=== PATIENT | female | born 1960 | race Caucasian/White ===

== ENCOUNTER 2020-05-11 12:45 | Outpatient (RCR) | payer OTHER, SELFPAY | END 2020-05-11 23:59 | LOC: IMMUN 12:45 | PROVIDERS: PCP Family Medicine; Visit Provider Family Medicine | DX: Z23 Encounter for immunization (principal) | CPT/HCPCS: 0011A; 0012A; 91301 ==

== ENCOUNTER → 2021-08-13 | Outpatient (CLI) | payer OTHER, SELFPAY ==
--- NOTE | 2021-08-13 14:58 | VDLE_ITS ---
Reason For Study: Pain RIGHT GSV is normal. CFV is compressible, spontaneous, phasic, competent and demonstrates normal augmentation. FV is compressible, spontaneous, phasic, competent and demonstrates normal augmentation. POP V is compressible, spontaneous, phasic, competent and demonstrates normal augmentation. T/P Trunk is compressible. PTV is compressible. RT PerV is compressible. Procedure This is a venous duplex using B-mode, color flow and spectral Doppler. Exam performed in department. A preliminary report was called and/or faxed to Fabián HAZEL. VL/Venous Duplex US, Unilateral Interpretation Summary Deep veins of the right lower extremity are patent and compressible segmentally . There is no evidence of right lower extremity deep vein thrombosis. Valvular competence wong ears intact within the proximal deep venous system on the right . The right great saphenous vein a ppears patent and compressible segmentally. Ordering Physician: Fabián Fernandez Referring Physician: Keon Manzo Performed By: Allison Wright, JESSICA, RVT
[2021-08-13 16:40] LABS: Absolute Lymphocyte Count 2.14 X10^3/uL (0.83-4.51); Basophil# 0.03 X10^3/uL; Basophil% 0.4 % (0-1); Eosinophil# 0.21 X10^3/uL; Eosinophils% 3.1 % (0-5); Hematocrit 39.3 % (37-47); Hemoglobin 13.6 g/dL (12.0-15.0); Lymphocyte # 2.14 X10^3/ul (0.83-4.51); Lymphocyte % 31.3 % (19-41); Mean Corp Hgb Conc 34.6 g/dL (32-36); Mean Corpuscular Hgb 35.3 pg (27.0-32.0); Mean Corpuscular Volume 102.1 fL (81-99); Mean Platelet Vol. 9.1 fl (6.2-12.0); Monocyte# 0.44 X10^3/uL; Monocyte% 6.4 % (0-10); NRBC Flagged by Analyzer 0 % (0-5); Neutrophil # 3.99 X10^3/uL (2.7-7.7); Neutrophil % 58.4 % (47-70); Platelet Count 210 K/mm3 (150-450); RBC Distribution Width CV 13.9 % (11.6-14.6); RBC Distribution Width SD 51.9 fl (35.1-43.9); Red Blood Count 3.85 M/mm3 (4.2-5.4); White Blood Count 6.8 K/mm3 (4.4-11.0)
[2021-08-13 16:51] LABS: CRP 3.38 mg/L (0.0-3.0)
[2021-08-13 17:23] LABS: Erythrocyte Sedimentation Rate 5 mm/hr (0-30)
== END | disposition home or self-care (01) ==
PROVIDERS: PCP Family Medicine; Referring Provider Physician Assistant Surgical; Visit Provider Physician Assistant Surgical
DX: M17.11 Unilateral primary osteoarthritis, right knee (principal); M79.661 Pain in right lower leg
CPT/HCPCS: 36415; 85025; 85652; 86140; 93971

== ENCOUNTER → 2024-11-15 | Outpatient (CLI) | payer MEDICARE, BC, SELFPAY ==
[2024-11-15 16:18] LABS: Hepatitis C Antibody Nonreactive (Nonreactive)
[2024-11-18 08:09] LABS: QNTFERON TB Mitogen Value > 10.00 IU/mL (.); QNTFERON TB Nil Value 0.05 IU/mL (.); QNTFERON TB1+ Ag Value 0.09 IU/mL (.); QNTFERON TB2+ Ag Value 0.07 IU/mL (.); QNTIFERON TB Positive Criteria Negative (Negative)
== END | disposition home or self-care (01) ==
PROVIDERS: PCP Family Medicine; Referring Provider Dermatology Pediatric Dermatology; Visit Provider Dermatology Pediatric Dermatology
DX: L40.0 Psoriasis vulgaris (principal)
CPT/HCPCS: 36415; 86480; 86705; 86708; 86803